=== PATIENT | male | born 1960 | race Caucasian/White ===

== ENCOUNTER 2018-11-22 09:29 | Emergency (ER) | payer OTHER ==
--- NOTE | 2018-11-22 09:43 | ERPHSYRPT ---
- History of Present Illness Time Seen by Provider: 11/22/18 09:35 Source: patient Exam Limitations: no limitations Physician History: patient has had sudden onset of left ear pain on 11/20/2018 in the evening with radiation to his jaw and neck over the past day. The patient denies any recent air travel or plan, recent swimming, recent scuba diving, or any overwhelming sinus congestion or drainage. Patient states he does sometimes use ear plugs to that left ear. Timing/Duration: abrupt onset Severity: severe ENT Location: ear (L) Prearrival Treatment: no prearrival treatment Modifying Factors: Improves With: nothing Associated Symptoms: ear pain (L), No ear pain (R), No cough, No fever, No chills, No change in hearing, No dizziness, No drooling, No ear drainage, No facial pain/swelling, No headache, No hearing loss, No jaw pain, No malaise, No motion sickness, No nasal congestion/drainage, No epistaxis, No nasal foreign body, No neck pain, No poor fluid intake, No poor solids intake, No ringing of ears, No swollen glands, No sinus infection, No sore throat, No tooth pain, No difficulty swallowing, No voice change - Review of Systems Constitutional: No Fever, No Chills Eyes: No Discharge, No Eye Pain, No Eye Redness, No Vision Changes Ears, Nose, & Throat: Ear Pain, No Ear Discharge, No Nose Congestion, No Nose Discharge, No Mouth Pain, No Mouth Swelling, No Loose Teeth, No Throat Pain, No Throat Swelling, No Hoarse, No Painful Swallowing Respiratory: No Cough, No Dyspnea Cardiac: No Chest Pain, No Edema, No Syncope Abdominal/Gastrointestinal: No Abdominal Pain, No Nausea, No Vomiting, No Diarrhea Genitourinary Symptoms: No Dysuria Musculoskeletal: No Back Pain, No Neck Pain Skin: No Rash Neurological: No Dizziness, No Focal Weakness, No Sensory Changes Psychological: No Symptoms Endocrine: No Symptoms Hematologic/Lymphatic: No Easy Bleeding, No Easy Bruising All Other Systems: Reviewed and Negative - Past Medical History Pertinent Past Medical History: Yes Cardiac History: Coronary Artery Disease, High Cholesterol, Hypertension Endocrine Medical History: Diabetes Type II GI Medical History: GERD - Past Surgical History Cardiac: Cardiac Stent Gastrointestinal: Appendectomy, Cholecystectomy, Hernia Repair - Social History Smoking Status: Never smoker Exposure to second hand smoke: No Alcohol Use: None Drug Use: none Patient Lives Alone: No - Nursing Vital Signs Nursing Vital Signs: Initial Vital Signs Temperature 97.7 F 11/22/18 09:31 Pulse Rate 84 11/22/18 09:31 Respiratory Rate 18 11/22/18 09:31 Blood Pressure 138/81 11/22/18 09:31 O2 Sat by Pulse Oximetry 96 11/22/18 09:31 Pain Scale Pain Intensity 10 - Physical Exam General Appearance: no apparent distress, alert Eye Exam: bilateral eye: normal inspection, PERRL, EOMI Ear Exam: right ear: canal normal, left ear: swelling, tenderness, bilateral ear : auricle normal, TM normal Nasal Exam: normal inspection, No discharge, No dried blood Throat Exam: normal, pharynx normal, moist mucus membranes, No dental tenderness , No excessive drooling, No foreign body, No mandibular swelling, No maxillary swelling, No pharynx swelling, No pharynx tenderness, No tongue swollen, No tonsillar exudate, No tonsillar swelling, No trismus, No uvula swelling, No voice changes Neck Exam: normal inspection, non-tender, supple, trachea midline, No full range of motion, No JVD, No lymphadenopathy (R), No Brudzinski's sign Cardiovascular/Respiratory Exam: normal breath sounds, regular rate/rhythm, heart sounds normal, no JVD, no M/R/G Abdominal Exam: non-tender, soft Neurologic Exam: alert, oriented x 3, music therapist II-XII nml as tested, normal mood/ affect, sensation nml, No motor deficits Skin Exam: normal color, warm, dry, No cyanosis SpO2 Interpretation: normal O2 Delivery: Room Air - Departure Departure Disposition: Home Clinical Impression: Left otitis externa Qualifiers: Otitis externa type: other infective Chronicity: acute Qualified Code(s): H60.392 - Other infective otitis externa, left ear Hypertension Qualifiers: Hypertension type: essential hypertension Qualified Code(s): I10 - Essential ( primary) hypertension Condition: Good Critical Care Time: No Referrals: ALICIA SCHAEFER II [Primary Care Provider] - Follow Up with PCP/3 days Instructions: High Blood Pressure (DC), Ear Infections (Otitis Media) (DC) Prescriptions: Etodolac 400 mg [Lodine 400 mg] 400 mg PO BID PRN PRN #20 tablet PRN Reason: Pain Kumar/Baci/Poly/Hc Ear Solution* [CORTISPORIN EAR DROPS Solution 1OML] 4 drops OT QID 10 Days #1 bottle
[2018-11-22 09:46] VITALS: BP 138/81; PULSE 84; O2SAT 96
== END 2018-11-22 09:51 | disposition home or self-care (01) ==
LOC: ED 09:29
DX: H60.392 Other infective otitis externa, left ear (principal); I10 Essential (primary) hypertension
CPT/HCPCS: 99283

== ENCOUNTER 2019-05-21 05:22 | Emergency (ER) | payer OTHER ==
--- NOTE | 2019-05-21 05:56 | ERPHSYRPT ---
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, pt states that he has had rt foot pain for the past week, pt states that he thought he spained his foot, pt states that today the pain radiated up his calf, to his knee and up to his hip, pt states he has neuropathy, pt states that he checks his feet due to his diabetes, pt state that the pain has increase and radiated today, pt states that he recognized his rt foot was purple on the sole, pt states he noticed swelling today Triage Nursing Assessment: pt ambulated into the er, pt is axo x3, pt walked with limp, pt has mild edema to rt ankle, positive pedal pulses, good cap refill , states 8/10 pain to rt foot, hypertensive Physician History: This is a 59-year-old diabetic overweight, white male with a history of hypertension and presents with a one-week history of right foot pain. The pain radiates up his calf into his buttock on the right side. Patient has a history of diabetic neuropathy generally. However, he has had right foot pain in the last week. This is unusual for him. He denies any trauma to this area. Patient has no history of any bleeding or clotting disorders. 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 The pain was much worse this morning. Method of Injury: unknown Occurred: last week Quality: constant, aching, throbbing Severity of Pain-Max: moderate Severity of Pain-Current: moderate Lower Extremities Pain: foot: right Modifying Factors: Improves With: nothing Associated Symptoms: other (Hurts to bear weight) Allergies/Adverse Reactions: No Known Drug Allergies Allergy (Unverified 05/21/19 05:42) Home Medications: Amlodipine Besylate 10 mg PO DAILY 05/21/19 [History] Aspirin [Aspirin EC] 81 mg PO DAILY 05/21/19 [History] Clopidogrel Bisulfate [Clopidogrel] 75 mg PO DAILY 05/21/19 [History] Empagliflozin [Jardiance] 25 mg PO DAILY 05/21/19 [History] Gabapentin 100 mg PO TID 05/21/19 [History] Glimepiride 4 mg [Amaryl 4 mg] 4 mg PO DAILY 05/21/19 [History] Insulin Glargine,Hum.rec.anlog [Basaglar Kwikpen U-100] 100 unit SQ HS 05/21/19 [History] Insulin Lispro [Humalog Kwikpen U-100] 58 units SQ DAILY 05/21/19 [History] Metoprolol Succinate 50 mg PO DAILY 05/21/19 [History] Olmesartan/Hydrochlorothiazide [Olmesartan-Hctz 40-25 mg Tab] 1 tab PO DAILY 11/01 [History] Omeprazole 40 mg PO DAILY 05/21/19 [History] Oxycodone HCl/Acetaminophen [Oxycodone-Acetaminophen 10-325] 1 tab PO QID [History] Pravastatin Sodium 20 mg PO DAILY 05/21/19 [History] Hx Tetanus, Diphtheria Vaccination/Date Given: Yes Hx Influenza Vaccination/Date Given: Yes Hx Pneumococcal Vaccination/Date Given: Yes - Review of Systems Constitutional: No Symptoms Eyes: No Symptoms Ears, Nose, & Throat: No Symptoms Respiratory: No Symptoms Cardiac: No Symptoms Abdominal/Gastrointestinal: No Symptoms Genitourinary Symptoms: No Symptoms Musculoskeletal: Other (Right foot pain) Skin: No Symptoms Neurological: No Symptoms Psychological: No Symptoms Endocrine: No Symptoms Hematologic/Lymphatic: No Symptoms Immunological/Allergic: No Symptoms All Other Systems: Reviewed and Negative - Past Medical History Pertinent Past Medical History: Yes Neurological History: No Pertinent History ENT History: No Pertinent History Cardiac History: Coronary Artery Disease, High Cholesterol, Hypertension Respiratory History: No Pertinent History Endocrine Medical History: Diabetes Type II Musculoskeletal History: No Pertinent History GI Medical History: GERD History: No Pertinent History Psycho-Social History: No Pertinent History Male Reproductive Disorders: No Pertinent History - Past Surgical History Past Surgical History: Yes Neuro Surgical History: No Pertinent History Cardiac: Cardiac Stent Respiratory: No Pertinent History Gastrointestinal: Appendectomy, Cholecystectomy, Hernia Repair Genitourinary: No Pertinent History Musculoskeletal: No Pertinent History Male Surgical History: No Pertinent History Other Surgical History: cardiac cath with stent placement, appendectomy, cholecystectomy - Social History Smoking Status: Never smoker Exposure to second hand smoke: No Alcohol Use: None Drug Use: none Patient Lives Alone: No - Nursing Vital Signs Nursing Vital Signs: Initial Vital Signs Temperature 97.6 F 05/21/19 05:26 Pulse Rate 73 05/21/19 05:26 Respiratory Rate 19 03/08/20 05:26 Blood Pressure 175/103 05/21/19 05:26 O2 Sat by Pulse Oximetry 98 05/21/19 05:26 Pain Scale Pain Intensity 7 - Physical Exam General Appearance: no apparent distress, alert, anxiety Eyes, Ears, Nose, Throat Exam: normal ENT inspection, moist mucous membranes Neck Exam: normal inspection, non-tender, supple, full range of motion Cardiovascular/Respiratory Exam: chest non-tender Gastrointestinal/Abdominal Exam: non-tender Back Exam: normal inspection, normal range of motion, No CVA tenderness, No vertebral tenderness Hips Exam: bilateral: non-tender, normal inspection, normal range of motion, no evidence of injury Legs Exam: bilateral leg: non-tender, normal inspection, normal range of motion , no evidence of injury Knees Exam: bilateral knee: non-tender, normal inspection, normal range of motion, no evidence of injury Ankle Exam: bilateral ankle: non-tender, normal inspection, normal range of motion, no evidence of injury Foot Exam: right foot: soft tissue tenderness, swelling (Medial, instep), left foot: non-tender, bilateral foot: normal inspection, normal range of motion, no evidence of injury Neuro/Tendon Exam: normal sensation, normal motor functions, normal tendon functions Mental Status Exam: alert, oriented x 3, cooperative Skin Exam: normal color, warm, dry SpO2 Interpretation: normal SpO2: 98 O2 Delivery: Room Air - Course Nursing assessment & vital signs reviewed: Yes Ordered Tests: Active Orders 24 hr Category Date Time Status FOOT (MINIMUM 3 VIEWS) Stat Exams 05/21/19 05:56 Taken D-DIMER QUANTITATIVE Stat Lab 05/21/19 06:25 Completed Medication Summary Discontinued Medications Generic Name Dose Route Start Last Admin Trade Name Freq PRN Reason Stop Dose Admin Oxycodone/Acetaminophen 1 tab 05/21/19 06:02 05/21/19 06:13 Oxycodone-Acetaminophen 10-325 PO 05/21/19 06:03 1 tab STAT STA Administration Oxycodone/Acetaminophen Confirm 05/21/19 06:12 Oxycodone-Acetaminophen 10-325 Administered 05/21/19 06:13 Dose 1 tab .ROUTE .[employer]-MED ONE Lab/Rad Data: Laboratory Results 05/21/19 Range/Units 06:25 D-Dimer 257 (215-500) ng/mL - Progress Progress Note: 05/21/19 06:30 X-ray of the right foot reveals chronic arthritic changes. I do not see an acute fracture or dislocation. Counseled pt/family regarding: diagnosis, need for follow-up, rad results - Departure Departure Disposition: Home Clinical Impression: Right foot pain Condition: Stable Critical Care Time: No Referrals: ALICIA SCHAEFER II [Primary Care Provider] - Additional Instructions: Ice pack to area 3 times a day for the next 48 hours. Follow-up with your primary care physician if your symptoms have not improved and are persistent after the next 48 hours. Continue your Percocet pain medication. Prescriptions: Carisoprodol 350 mg [Soma 350 mg] 350 mg PO Q12H PRN PRN #9 tablet PRN Reason: Muscle Spasms
[2019-05-21] MEDS ORDERED: OXYCODONE-ACETAMINOPHEN 10-325 PO STA (06:02)
[2019-05-21] MEDS ORDERED: OXYCODONE-ACETAMINOPHEN 10-325 ONE (06:12)
[2019-05-21 07:06] VITALS: O2SAT 98
[2019-05-21 07:22] VITALS: BP 149/87; PULSE 64
--- NOTE | 2019-05-21 08:53 | XRAY ---
Indication: Medial pain. No known injury. Comparison: None 3 nonweightbearing views of the right foot demonstrates moderate 1st MTP degenerative changes with mild bunion deformity and tiny medial heterotopic ossification. Tiny heel spurs. No other bony, articular, or soft tissue abnormalities.
== END 2019-05-21 07:22 | disposition home or self-care (01) ==
LOC: ED 05:22
DX: M79.671 Pain in right foot (principal); I25.10 Atherosclerotic heart disease of native coronary artery without angina pectoris; E78.00 Pure hypercholesterolemia, unspecified; I10 Essential (primary) hypertension; E11.9 Type 2 diabetes mellitus without complications; K21.9 Gastro-esophageal reflux disease without esophagitis; Z98.61 Coronary angioplasty status; Z79.899 Other long term (current) drug therapy; Z79.4 Long term (current) use of insulin; Z79.84 Long term (current) use of oral hypoglycemic drugs; Z79.891 Long term (current) use of opiate analgesic; Z79.82 Long term (current) use of aspirin; E11.40 Type 2 diabetes mellitus with diabetic neuropathy, unspecified
CPT/HCPCS: 36415; 73630; 85379; 99283; A9270-GY

== ENCOUNTER 2020-09-02 17:54 | Emergency (ER) | payer OTHER ==
--- NOTE | 2020-09-02 18:28 | ERPHSYRPT ---
<VILMA GÓMEZ - Last Filed: 09/02/20 18:33> - History of Present Illness Time Seen by Provider: 09/02/20 17:56 Historian: patient Exam Limitations: no limitations Patient Subjective Stated Complaint: chest pain x 3 days Triage Nursing Assessment: pt to ED c/o CP x 3 days. states pain has worsened since start, was resting in bed. rates 7/10 now. had nitro at home with some relief on Wednesday but none since then. heart sounds clear, lungs clear and equal bilaterally. Physician History: 60-year-old male with history of coronary artery disease status post stenting, hypertension, hyperlipidemia, diabetes mellitus presented in the ER with chief complaint of 3 days history of intermittent chest pain central and across the chest, moderate to severe intensity, dull pressure/tightness as if something sitting on chest, aggravated with activity/exertion and partial relief with taking nitro and rest. Denies associated shortness of breath or palpitations. Denies any lower extremity swellings. Last cardiac cath and stenting was almost a year ago. On presentation patient has a severe pain 9/10 intensity, given nitro and it is much improved. Timing/Duration: day(s) (3), intermittent, gradual onset, worse Activities at Onset: activity, rest Quality: dullness, fullness, pressure Location: central Chest Pain Radiation: jaw, neck Severity of Pain-Max: severe Severity of Pain-Current: moderate Modifying Factors: Worsens With: exertion Associated Symptoms: denies symptoms Prior Chest Pain/Cardiac Workup: cardiac cath, heart attack Nitro Today/Relief: 0.4 mg x 1 Aspirin Treatment Today: unknown Allergies/Adverse Reactions: No Known Drug Allergies Allergy (Verified 09/02/20 18:02) Home Medications: Amlodipine Besylate 10 mg PO DAILY 05/21/19 [History] Aspirin [Aspirin EC] 81 mg PO DAILY 05/21/19 [History] Clopidogrel Bisulfate [Clopidogrel] 75 mg PO DAILY 05/21/19 [History] Empagliflozin [Jardiance] 25 mg PO DAILY 05/21/19 [History] Gabapentin 100 mg PO TID 05/21/19 [History] Glimepiride 4 mg [Amaryl 4 mg] 4 mg PO DAILY 05/21/19 [History] Insulin Glargine,Hum.rec.anlog [Basaglar Kwikpen U-100] 100 unit SQ HS 05/21/19 [History] Insulin Lispro [Humalog Kwikpen U-100] 58 units SQ DAILY 05/21/19 [History] Metoprolol Succinate 50 mg PO DAILY 05/21/19 [History] Olmesartan/Hydrochlorothiazide [Olmesartan-Hctz 40-25 mg Tab] 1 tab PO DAILY 05/21/19 [History] Omeprazole 40 mg PO DAILY 05/21/19 [History] Oxycodone HCl/Acetaminophen [Oxycodone-Acetaminophen 10-325] 1 tab PO QID 05/21/19 [History] Pravastatin Sodium 20 mg PO DAILY 05/21/19 [History] Hx Tetanus, Diphtheria Vaccination/Date Given: Yes Hx Influenza Vaccination/Date Given: Yes Hx Pneumococcal Vaccination/Date Given: Yes Immunizations Up to Date: Yes Travel Risk - International Travel Have you traveled outside of the country in past 3 weeks: No - Coronavirus Screening Are you exhibiting any of the following symptoms?: No Close contact with a COVID-19 positive Pt in past 14-21 Days: No - Vaccine Status Have you recieved a Covid-19 vaccination: No - Review of Systems Constitutional: No Symptoms Eyes: No Symptoms Ears, Nose, & Throat: No Symptoms Respiratory: No Symptoms Cardiac: Chest Pain Abdominal/Gastrointestinal: No Symptoms Genitourinary Symptoms: No Symptoms Musculoskeletal: No Symptoms Skin: No Symptoms Neurological: No Symptoms Psychological: No Symptoms Endocrine: No Symptoms Hematologic/Lymphatic: No Symptoms Immunological/Allergic: No Symptoms - Past Medical History Pertinent Past Medical History: Yes Neurological History: No Pertinent History ENT History: No Pertinent History Cardiac History: Coronary Artery Disease, High Cholesterol, Hypertension Respiratory History: No Pertinent History Endocrine Medical History: Diabetes Type II Musculoskeletal History: No Pertinent History GI Medical History: GERD History: No Pertinent History Psycho-Social History: No Pertinent History Male Reproductive Disorders: No Pertinent History - Past Surgical History Past Surgical History: Yes Neuro Surgical History: No Pertinent History Cardiac: Cardiac Catheterization, Cardiac Stent Respiratory: No Pertinent History Gastrointestinal: Appendectomy, Cholecystectomy, Hernia Repair Genitourinary: No Pertinent History Musculoskeletal: No Pertinent History Male Surgical History: No Pertinent History Other Surgical History: cardiac cath with stent placement, appendectomy, cholecystectomy - Social History Smoking Status: Never smoker Exposure to second hand smoke: No Alcohol Use: None Drug Use: none Patient Lives Alone: No - Physical Exam General Appearance: no apparent distress, alert Eye Exam: PERRL/EOMI, eyes nml inspection Ears, Nose, Throat Exam: normal ENT inspection, pharynx normal Neck Exam: normal inspection, supple, full range of motion Respiratory Exam: normal breath sounds, lungs clear Cardiovascular Exam: regular rate/rhythm, normal heart sounds Gastrointestinal/Abdomen Exam: soft, normal bowel sounds, No tenderness Back Exam: normal inspection, normal range of motion Extremity Exam: normal inspection, normal range of motion, pelvis stable, No macey's sign Neurologic Exam: alert, oriented x 3, cooperative Skin Exam: normal color SpO2 Interpretation: normal SpO2: 95 O2 Delivery: Room Air - Course EKG Interpreted by Me: RATE (65), Sinus Rhythm, NORMAL AXIS, NORMAL INTERVALS, NORMAL QRS - Progress Progress: unchanged Air Movement: good Progress Note: 09/02/20 18:58 60-year-old is evaluated for chest pain, given full dose aspirin, Nitropaste and morphine. Chest pain work-up is ordered, currently pending, care is transferred to Dr. Herrera for further evaluation and final disposition. Blood Culture(s) Obtained: No Antibiotics given: No - Departure Clinical Impression: Chest pain, ACS (acute coronary syndrome) Condition: Stable Referrals: ALICIA SCHAEFER II [Primary Care Provider] - <GOLDY HERRERA - Last Filed: 09/02/20 19:52> - Nursing Vital Signs Nursing Vital Signs: Initial Vital Signs Pulse Rate 70 09/02/20 17:55 Respiratory Rate 20 09/02/20 17:55 Blood Pressure 181/92 09/02/20 17:55 O2 Sat by Pulse Oximetry 95 09/02/20 17:55 Pain Scale Pain Intensity 7 Ordered Tests: Active Orders 24 hr Category Date Time Status Customs And Immigration Officer STAT Care 09/02/20 18:36 Active EKG-ER Only STAT Care 09/02/20 18:29 Active IV Insertion STAT Care 09/02/20 18:29 Active Oxygen-ED Only Nasal Cannula 2 lpm Care 09/02/20 18:29 Active CHEST 1 VIEW (PORTABLE) Stat Exams 09/02/20 18:29 Taken CBC W DIFF Stat Lab 09/02/20 18:36 Completed CMP Stat Lab 09/02/20 18:36 Completed NT PRO BNP Stat Lab 09/02/20 18:36 Completed TROPONIN Q3H Lab 09/02/20 18:36 Completed TROPONIN Q3H Lab 09/02/20 21:30 Ordered TROPONIN Q3H Lab 09/03/20 00:30 Ordered TROPONIN Q3H Lab 09/03/20 03:30 Ordered TROPONIN Q3H Lab 09/03/20 06:30 Ordered Medication Summary Discontinued Medications Generic Name Dose Route Start Last Admin Trade Name Greg PRN Reason Stop Dose Admin Aspirin 324 mg 09/02/20 18:29 09/02/20 18:35 Baby Aspirin 81 Mg Chew PO 09/02/20 18:30 324 mg STAT ONE Administration Hydromorphone HCl 0.5 mg 09/02/20 19:35 Hydromorphone 1 Mg/Ml Injection IV 09/02/20 19:36 STAT ONE Morphine Sulfate 4 mg 09/02/20 18:29 09/02/20 18:38 Morphine Sulfate 4 Mg Inj IV 09/02/20 18:30 4 mg STAT ONE Administration Morphine Sulfate Confirm 09/02/20 18:35 Morphine Sulfate 4 Mg Inj Administered 09/02/20 18:36 Dose 4 mg .ROUTE .STK-MED ONE Morphine Sulfate 4 mg 09/02/20 19:09 09/02/20 19:10 Morphine Sulfate 4 Mg Inj IV 09/02/20 19:10 4 mg STAT ONE Administration Morphine Sulfate Confirm 09/02/20 19:10 Morphine Sulfate 4 Mg Inj Administered 09/02/20 19:11 Dose 4 mg .ROUTE .STK-MED ONE Nitroglycerin 1 gm 09/02/20 18:29 09/02/20 18:34 Nitro-Bid 2% Ud Packets TOP 09/02/20 18:30 Not Given STAT ONE Nitroglycerin 0.4 mg 09/02/20 18:41 09/02/20 18:43 Nitrostat 0.4 Mg Tablet SL 09/02/20 18:42 0.4 mg STAT ONE Administration Ondansetron HCl 4 mg 09/02/20 18:29 09/02/20 18:38 Zofran 4 Mg/2 Ml Vial IV 09/02/20 18:30 4 mg STAT ONE Administration Ondansetron HCl Confirm 09/02/20 18:35 Zofran 4 Mg/2 Ml Vial Administered 09/02/20 18:36 Dose 4 mg .ROUTE .STK-MED ONE Lab/Rad Data: Laboratory Result Diagrams 09/02/20 18:36 09/02/20 18:36 Laboratory Results 09/02/20 09/02/20 09/02/20 Range/Units 18:36 18:36 18:36 WBC 11.1 H (4.0-10.5) K/mm3 RBC 5.11 (4.1-5.6) M/mm3 Hgb 15.4 (12.5-18.0) gm/dl Hct 46.0 (42-50) % MCV 90.0 (78-100) fl MCH 30.1 (26-32) pg MCHC 33.5 (32-36) g/dl RDW 13.4 (11.5-14.0) % Plt Count 203 (150-450) K/mm3 MPV 9.6 (7.5-11.0) fl Gran % 59.5 (36.0-66.0) % Eos # (Auto) 0.37 (0-0.5) Absolute Lymphs (auto) 3.23 (1.0-4.6) Absolute Monos (auto) 0.87 (0.0-1.3) Lymphocytes % 29.1 (24.0-44.0) % Monocytes % 7.8 (0.0-12.0) % Eosinophils % 3.3 (0.00-5.0) % Basophils % 0.3 (0.0-0.4) % Absolute Granulocytes 6.60 (1.4-6.9) Basophils # 0.03 (0-0.4) Sodium 134 L (137-145) mmol/L Potassium 4.1 (3.5-5.1) mmol/L Chloride 100 (98-107) mmol/L Carbon Dioxide 25 (22-30) mmol/L Anion Gap 12.2 (5-15) MEQ/L BUN 20 (9-20) mg/dL Creatinine 0.88 (0.66-1.25) mg/dL Estimated GFR > 60.0 ML/MIN Glucose 151 H (74-106) mg/dL Calcium 8.6 (8.4-10.2) mg/dL Total Bilirubin 0.20 (0.2-1.3) mg/dL AST 33 (17-59) U/L ALT 39 (0-50) U/L Alkaline Phosphatase 53 (38-126) U/L Troponin I < 0.012 (0.000-0.034) ng/mL NT-Pro-B Natriuret Pep 55.2 (0-900) pg/mL Serum Total Protein 6.6 (6.3-8.2) g/dL Albumin 3.9 (3.5-5.0) g/dL - Progress Progress Note: 09/02/20 19:36 Medical decision making: This patient continues to have chest pain despite morphine Nitropaste and dilaudid.. I spoke with the hospitalist Dr. Boland and I reviewed the patient history, lab results, EKG findings, chest x-ray results and patient condition with the hospitalist. He accepts the patient in transfer. Patient had made phone calls separately while we were making phone calls as well to [facility]. 09/02/20 19:50 Chest x-ray shows cardiomegaly. No evidence of acute cardiopulmonary issues appreciated. Counseled pt/family regarding: lab results, diagnosis, rad results - Departure Departure Disposition: Transfer Critical Care Time: Yes Critical Care Time(excluding separately billable procedures): Critical 30-74 mins
[2020-09-02] MEDS ORDERED: Zofran 4 MG/2 ML VIAL IV ONE (18:29)
[2020-09-02] MEDS ORDERED: MORPHINE SULFATE 4 MG INJ IV ONE ×2 (18:29→19:09)
[2020-09-02] MEDS ORDERED: NITRO-BID 2% UD PACKETS TOP ONE (18:29)
[2020-09-02] MEDS ORDERED: BABY ASPIRIN 81 MG CHEW PO ONE (18:29)
[2020-09-02] MEDS ORDERED: MORPHINE SULFATE 4 MG INJ ONE ×2 (18:35→19:10)
[2020-09-02] MEDS ORDERED: Zofran 4 MG/2 ML VIAL ONE (18:35)
[2020-09-02] MEDS ORDERED: Nitrostat 0.4 MG Tablet SL ONE (18:41)
[2020-09-02 18:43] LABS: BASOPHIL % 0.3 % (0.0-0.4); Basophil (Absolute #) 0.03 (0-0.4); Eosinophil % 3.3 % (0.00-5.0); Eosinophil (Absolute #) 0.37 (0-0.5); Hemoglobin 15.4 gm/dl (12.5-18.0); Lymphocyte (Absolute #) 3.23 (1.0-4.6); Lymphocytes % 29.1 % (24.0-44.0); Mean Corpuscular Hemoglobin 30.1 pg (26-32); Mean Corpuscular Hgb Concent. 33.5 g/dl (32-36); Mean Platelet Volume 9.6 fl (7.5-11.0); Monocyte (Absolute #) 0.87 (0.0-1.3); Monocytes % 7.8 % (0.0-12.0); Neutrophil % 59.5 % (36.0-66.0); Platelet Count 203 K/mm3 (150-450); Red Blood Count 5.11 M/mm3 (4.1-5.6); Red Cell Distribution Width 13.4 % (11.5-14.0); White Blood Count 11.1 K/mm3 (4.0-10.5)
[2020-09-02 19:03] LABS: BLOOD UREA NITROGEN 20 mg/dL (9-20); Creatinine 1 0.88 mg/dL (0.66-1.25); Glucose 151 mg/dL (74-106)
[2020-09-02 19:04] LABS: ALBUMIN 3.9 g/dL (3.5-5.0); ALKALINE PHOSPHATASE 53 U/L (38-126); ANION GAP 12.2 MEQ/L (5-15); CHLORIDE 100 mmol/L (98-107); Calcium 8.6 mg/dL (8.4-10.2); Carbon Dioxide 25 mmol/L (22-30); EST GLOMERULAR FILTRATION RATE > 60.0 ML/MIN; NT PRO BNP 55.2 pg/mL (0-900); Potassium 4.1 mmol/L (3.5-5.1); SGOT/AST 33 U/L (17-59); SGPT/ALT 39 U/L (0-50); SODIUM 134 mmol/L (137-145); Total Protein 6.6 g/dL (6.3-8.2)
[2020-09-02] MEDS ORDERED: Hydromorphone 1 mg/ml Injection IV ONE (19:35)
[2020-09-02 19:52] VITALS: BP 141/83; PULSE 76; O2SAT 96
[2020-09-02] MEDS ORDERED: Hydromorphone 1 mg/ml Injection ONE (19:57)
--- NOTE | 2020-09-03 09:02 | XRAY ---
Indication: Chest pain. Comparison: May 17, 2008. Portable chest is clear. Heart is not enlarged. Bony thorax intact with minimal degenerative changes. No new/acute findings.
== END 2020-09-02 20:02 | disposition short-term general hospital (02) ==
LOC: ED 17:54
DX: R07.9 Chest pain, unspecified (principal); I24.9 Acute ischemic heart disease, unspecified; Z79.899 Other long term (current) drug therapy; I10 Essential (primary) hypertension; E78.00 Pure hypercholesterolemia, unspecified; E11.9 Type 2 diabetes mellitus without complications
CPT/HCPCS: 36000; 36415; 71045; 80053; 83880; 84484; 85025; 93005; 93041; 96374; 96375; 96376; 99285; 99291; J1170; J2270; J2405; A9270-GY

== ENCOUNTER 2022-06-01 21:50 | Emergency (ER) | payer OTHER ==
--- NOTE | 2022-06-01 23:27 | ERPHSYRPT ---
- History of Present Illness Time Seen by Provider: 06/01/22 23:26 Source: patient Exam Limitations: no limitations Physician History: Patient c/o left lower leg swelling and localized pain. No h/o VTE. + h/o smoking. No recent hospitalization or major surgery. No recent trauma. 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 Worsens With: movement Associated Symptoms: none Allergies/Adverse Reactions: morphine Adverse Reaction (Mild, Verified 06/01/22 23:39) aggravates gerd Home Medications: Amlodipine Besylate 10 mg PO DAILY 05/21/19 [History] Aspirin [Aspirin EC] 81 mg PO DAILY 05/21/19 [History] Clopidogrel Bisulfate [Clopidogrel] 75 mg PO DAILY 05/21/19 [History] Empagliflozin [Jardiance] 25 mg PO DAILY 05/21/19 [History] Gabapentin 100 mg PO TID 05/21/19 [History] Glimepiride 4 mg [Amaryl 4 mg] 4 mg PO DAILY 05/21/19 [History] Insulin Glargine,Hum.rec.anlog [Basaglar Kwikpen U-100] 100 unit SQ HS 05/21/19 [History] Insulin Lispro [Humalog Kwikpen U-100] 58 units SQ DAILY 05/21/19 [History] Metoprolol Succinate 50 mg PO DAILY 05/21/19 [History] Olmesartan/Hydrochlorothiazide [Olmesartan-Hctz 40-25 mg Tab] 1 tab PO DAILY 05/21/19 [History] Omeprazole 40 mg PO DAILY 05/21/19 [History] Oxycodone HCl/Acetaminophen [Oxycodone-Acetaminophen 10-325] 1 tab PO QID 05/21/19 [History] Pravastatin Sodium 20 mg PO DAILY 05/21/19 [History] Hx Tetanus, Diphtheria Vaccination/Date Given: Yes Hx Influenza Vaccination/Date Given: Yes Hx Pneumococcal Vaccination/Date Given: Yes Travel Risk - Vaccine Status Have you recieved a Covid-19 vaccination: No - Review of Systems Constitutional: No Symptoms Eyes: No Symptoms Ears, Nose, & Throat: No Symptoms Respiratory: No Symptoms Cardiac: No Symptoms Abdominal/Gastrointestinal: No Symptoms Genitourinary Symptoms: No Symptoms Musculoskeletal: Other (LLE pain, swelling) Skin: No Symptoms Neurological: No Symptoms Psychological: No Symptoms - Past Medical History Pertinent Past Medical History: Yes Neurological History: No Pertinent History ENT History: No Pertinent History Cardiac History: Coronary Artery Disease, High Cholesterol, Hypertension Respiratory History: No Pertinent History Endocrine Medical History: Diabetes Type II Musculoskeletal History: No Pertinent History GI Medical History: GERD History: No Pertinent History Psycho-Social History: No Pertinent History Male Reproductive Disorders: No Pertinent History - Past Surgical History Past Surgical History: Yes Neuro Surgical History: No Pertinent History Cardiac: Cardiac Catheterization, Cardiac Stent Respiratory: No Pertinent History Gastrointestinal: Appendectomy, Cholecystectomy, Hernia Repair Genitourinary: No Pertinent History Musculoskeletal: No Pertinent History Male Surgical History: No Pertinent History Other Surgical History: cardiac cath with stent placement, appendectomy, cholecystectomy - Social History Smoking Status: Never smoker Exposure to second hand smoke: No Alcohol Use: None Drug Use: none Patient Lives Alone: No - Nursing Vital Signs Nursing Vital Signs: Initial Vital Signs Temperature 97.6 F 06/01/22 23:24 Pulse Rate 66 06/01/22 23:24 Respiratory Rate 16 06/01/22 23:24 Blood Pressure 157/77 06/01/22 23:24 O2 Sat by Pulse Oximetry 94 L 06/01/22 23:24 Pain Scale Pain Intensity 8 - Physical Exam General Appearance: no apparent distress Cardiovascular/Respiratory Exam: normal breath sounds, regular rate/rhythm, heart sounds normal Gastrointestinal/Abdominal Exam: non-tender, soft Legs Exam: left leg: ecchymosis, pain, soft tissue tenderness, swelling Neuro/Tendon Exam: normal sensation, normal motor functions, normal tendon functions Mental Status Exam: alert, oriented x 3, cooperative Skin Exam: normal color, warm, dry SpO2 Interpretation: normal O2 Delivery: Room Air - Radiology Exams Left Ankle X-ray Interpretation: Interpreted by me, Negative - Radiology Ultrasound Exam Left Venous Lower Extremity Ultrasound: tele radiology report, negative, Other (No DVT) Ordered Tests: Active Orders 24 hr Category Date Time Status ANKLE (3 VIEWS) Stat Exams 06/01/22 23:43 Completed VENOUS UNILAT/LIMITED EXTREMIT [US] Stat Exams 03/21/23 00:36 Completed CBC Stat Lab 06/01/22 23:44 Completed CMP Stat Lab 06/01/22 23:44 Completed ESR [Erythrocyte Sedimentation Rate] Stat Lab 06/01/22 23:44 Completed Medication Summary Discontinued Medications Generic Name Dose Route Start Last Admin Trade Name Greg PRN Reason Stop Dose Admin Morphine Sulfate 2 mg 06/01/22 23:45 Morphine Sulfate 2 Mg/Ml Inj IV 06/01/22 23:46 STAT ONE Oxycodone/Acetaminophen 1 tab 06/02/22 00:17 06/02/22 00:31 Oxycodone / Apap 10/325 Mg 1 Tablet PO 06/02/22 00:18 1 tab STAT STA Administration Oxycodone/Acetaminophen Confirm 06/02/22 00:29 Oxycodone / Apap 10/325 Mg 1 Tablet Administered 06/02/22 00:30 Dose 1 tab .ROUTE .hoccer ONE Lab/Rad Data: Laboratory Result Diagrams 06/01/22 23:44 06/02/22 00:00 Laboratory Results 06/02/22 06/01/22 Range/Units 00:00 23:44 WBC 8.7 (4.0-10.5) x10^3/uL RBC 5.56 (4.1-5.6) x10^6/uL Hgb 16.7 (12.5-18.0) g/dL Hct 51.0 H (42-50) % MCV 91.7 (78-100) fL MCH 30.0 (26-32) pg MCHC 32.7 (32-36) g/dL RDW 13.2 (11.5-14.0) % Plt Count 196 (150-450) x10^3/uL MPV 9.8 (7.5-11.0) fL ESR 6 (0-15) mm/hr Sodium 135 L (137-145) mmol/L Potassium 4.5 (3.5-5.1) mmol/L Chloride 97 L (98-107) mmol/L Carbon Dioxide 29 (22-30) mmol/L Anion Gap 12.6 (5-15) MEQ/L BUN 19 (9-20) mg/dL Creatinine 0.88 (0.66-1.25) mg/dL Estimated GFR > 60.0 ML/MIN Glucose 215 H (74-106) mg/dL Calcium 9.1 (8.4-10.2) mg/dL Total Bilirubin 0.40 (0.2-1.3) mg/dL AST 29 (17-59) U/L ALT 44 (0-50) U/L Alkaline Phosphatase 65 (38-126) U/L Serum Total Protein 7.0 (6.3-8.2) g/dL Albumin 4.1 (3.5-5.0) g/dL - Progress Progress: improved Progress Note: Ankle XR showed no acute finding. LLE venous duplex showed no DVT. Lab evaluation unremarkable. Advised patient to Ice 4-5x QD for 10-15min, elevate the extremity, compression prn, NSAIDs/Voltaren gel prn for pain. If no improvement in 48-72 hours please f/u w/ ortho clinic. Counseled pt/family regarding: lab results, diagnosis, need for follow-up, rad results Medical Desision Making - Diagnostic Testing Diagnostic test were ordered, analyzed, and reviewed by me: Yes Radiological Interpretation: Interpreted by me, Reviewed by me - Risk of complications The pt has a mod risk of morbidity or mortality based on: Need for prescription drug management - Departure Departure Disposition: Home Clinical Impression: Left lateral ankle pain, Swelling of left ankle joint Condition: Good Critical Care Time: No Referrals: ALICIA SCHAEFER II [Primary Care Provider] - Follow up/PCP as directed Instructions: Swollen Joints (DC) Additional Instructions: Take Percocet as prescribed. Tylenol 1000mg BID in addition to QD Percocet. Voltaren gel prn. Ice 4-5 times per day. F/U w/ PCP w/in 3-5 days.
[2022-06-01 23:37] VITALS: BP 157/77; PULSE 66; O2SAT 94
[2022-06-01] MEDS ORDERED: MORPHINE SULFATE 2 MG INJ IV ONE (23:45)
[2022-06-02 00:04] LABS: Hemoglobin 16.7 g/dL (12.5-18.0); Mean Cell Volume 91.7 fL (78-100); Mean Corpuscular Hgb Concent. 32.7 g/dL (32-36); Mean Platelet Volume 9.8 fL (7.5-11.0); Platelet Count 196 x10^3/uL (150-450); Red Blood Count 5.56 x10^6/uL (4.1-5.6); Red Cell Distribution Width 13.2 % (11.5-14.0); White Blood Count 8.7 x10^3/uL (4.0-10.5)
[2022-06-02 00:16] LABS: Erythrocyte Sedimentation Rate 6 mm/hr (0-15)
[2022-06-02 00:17] LABS: ALBUMIN 4.1 g/dL (3.5-5.0); ALKALINE PHOSPHATASE 65 U/L (38-126); ANION GAP 12.6 MEQ/L (5-15); BLOOD UREA NITROGEN 19 mg/dL (9-20); CHLORIDE 97 mmol/L (98-107); Calcium 9.1 mg/dL (8.4-10.2); Carbon Dioxide 29 mmol/L (22-30); Creatinine 1 0.88 mg/dL (0.66-1.25); EST GLOMERULAR FILTRATION RATE > 60.0 ML/MIN; Glucose 215 mg/dL (74-106); Potassium 4.5 mmol/L (3.5-5.1); SGOT/AST 29 U/L (17-59); SGPT/ALT 44 U/L (0-50); SODIUM 135 mmol/L (137-145)
[2022-06-02] MEDS ORDERED: OXYCODONE-ACETAMINOPHEN 10-325 PO STA (00:17)
[2022-06-02] MEDS ORDERED: OXYCODONE-ACETAMINOPHEN 10-325 ONE (00:29)
--- NOTE | 2022-06-02 09:18 | XRAY ---
Indication: Pain and bruising. Comparison: None 3 view left ankle demonstrates tiny posterior heel and medial malleolus spur. No other bony, articular, or soft tissue abnormalities.
--- NOTE | 2022-06-02 16:23 | XRAY ---
Indication: Pain and swelling. Two-dimensional sonogram and color Doppler imaging of the major venous vessels of the left leg performed. Comparison: None No thrombus seen in the examined deep venous vessels of the left leg including greater saphenous vein. Veins demonstrate normal compressibility. Venous waveforms are normal with and without augmentation. Targeted ultrasound over region of interest is negative for focal solid/cystic mass or abnormal fluid collection. Impression: Left leg negative for DVT. Comment: Preliminary report was given.
== END 2022-06-02 01:02 | disposition home or self-care (01) ==
LOC: ED 21:50
DX: M25.572 Pain in left ankle and joints of left foot (principal); M25.472 Effusion, left ankle; E78.5 Hyperlipidemia, unspecified; I10 Essential (primary) hypertension; E11.9 Type 2 diabetes mellitus without complications; Z79.02 Long term (current) use of antithrombotics/antiplatelets; Z79.84 Long term (current) use of oral hypoglycemic drugs; Z79.4 Long term (current) use of insulin; Z79.899 Other long term (current) drug therapy; Z28.310 Unvaccinated for COVID-19
CPT/HCPCS: 36415; 73610; 80053; 85027; 85652; 93971; 99283; A9270-GY

== ENCOUNTER 2022-11-18 19:38 | Emergency (ER) | payer OTHER ==
[2022-11-18 20:15] VITALS: TEMP 97.2; O2SAT 94
--- NOTE | 2022-11-18 20:26 | ERPHSYRPT ---
- History of Present Illness Time Seen by Provider: 11/18/22 20:40 Source: patient Exam Limitations: no limitations Patient Subjective Stated Complaint: pt states that this afternoon around 1300 he was getting in bed and heard/ felt a pop to the lateral side of left foot and has had 9/10 pain since that time. he denies knowingly twisting or any other mechanism for injury. he reports having something similar happening to his right foot years ago and there was a fracture. that time there was significant swelling per his report and no swelling noted to left foot at this time. Triage Nursing Assessment: pt brought to room 9 via wheelchair and transfered self to ED cart independently. pt is alert and oriented times three, able to move all extremities (limited to left foot due to pain), able to speak in complete sentences, and with resp even and unlabored. left pedal pulse palpable and normal, pt denies any new numbness or tingling (other than his normal neuropathy), cap refill and color are within normal limits, and pt is able to wiggle his toes. no swelling, deformity, bruising, or swelling noted. Physician History: Patient is a 62-year-old male presents to our ED with pain to the outside of his left foot. Patient states he was getting into bed today at approximately 1 PM. Patient felt a popping sensation followed by pain rated 9 out of 10. Patient states he had similar episode in the past involving his right foot. Patient was diagnosed with a fracture at that time. No blunt trauma. Patient denies twisting his foot. Pain described as an ache that is localized. No radiation. Pain worse with movement palpation. Pain improved with rest. No other injuries. Patient voices no other complaints or concerns at this time. Portions of this note were created with voice recognition technology. There may be grammatical, spelling, punctuation or sound alike errors Method of Injury: other (Weightbearing) Occurred: just prior to arrival (1 PM) Quality: constant Severity of Pain-Max: moderate Severity of Pain-Current: mild Lower Extremities Pain: foot: left (Fifth metatarsal base) Modifying Factors: Improves With: movement Associated Symptoms: none Allergies/Adverse Reactions: morphine Adverse Reaction (Mild, Verified 11/18/22 19:50) aggravates gerd Home Medications: Amlodipine Besylate 10 mg PO HS 05/21/19 [History] Aspirin [Aspirin EC] 81 mg PO DAILY 05/21/19 [History] Clopidogrel Bisulfate [Clopidogrel] 75 mg PO HS 05/21/19 [History] Empagliflozin [Jardiance] 25 mg PO DAILY 05/21/19 [History] Glimepiride 4 mg [Amaryl 4 mg] 4 mg PO DAILY 05/21/19 [History] Insulin Glargine,Hum.rec.anlog [Basaglar Kwikpen U-100] 100 unit SQ HS 05/21/19 [History] Insulin Lispro [Humalog Kwikpen U-100] 58 units SQ BID 05/21/19 [History] Metoprolol Succinate 50 mg PO DAILY 05/21/19 [History] Olmesartan/Hydrochlorothiazide [Olmesartan-Hctz 40-25 mg Tab] 1 tab PO DAILY 05/21/19 [History] Omeprazole 40 mg PO DAILY 05/21/19 [History] Oxycodone HCl/Acetaminophen [Oxycodone-Acetaminophen 10-325] 1 tab PO QID 05/21/19 [History] Pravastatin Sodium 20 mg PO HS 05/21/19 [History] Hx Tetanus, Diphtheria Vaccination/Date Given: Yes Hx Influenza Vaccination/Date Given: No Hx Pneumococcal Vaccination/Date Given: No Immunizations Up to Date: Yes Travel Risk - International Travel Have you traveled outside of the country in past 3 weeks: No - Coronavirus Screening Are you exhibiting any of the following symptoms?: No Close contact with a COVID-19 positive Pt in past 14-21 Days: No - Vaccine Status Have you recieved a Covid-19 vaccination: No - Review of Systems Constitutional: No Symptoms, No Fever, No Chills Eyes: No Symptoms Ears, Nose, & Throat: No Symptoms Respiratory: No Symptoms, No Cough, No Dyspnea Cardiac: No Symptoms, No Chest Pain, No Edema, No Syncope Abdominal/Gastrointestinal: No Symptoms, No Abdominal Pain, No Nausea, No Vomiting, No Diarrhea Genitourinary Symptoms: No Symptoms, No Dysuria Musculoskeletal: No Symptoms, No Back Pain, No Neck Pain Skin: No Symptoms, No Rash Neurological: No Symptoms, No Dizziness, No Focal Weakness, No Sensory Changes Psychological: No Symptoms Endocrine: No Symptoms Hematologic/Lymphatic: No Symptoms Immunological/Allergic: No Symptoms All Other Systems: Reviewed and Negative - Past Medical History Pertinent Past Medical History: Yes Neurological History: No Pertinent History ENT History: No Pertinent History Cardiac History: Coronary Artery Disease, High Cholesterol, Hypertension Respiratory History: No Pertinent History Endocrine Medical History: Diabetes Type II Musculoskeletal History: No Pertinent History GI Medical History: GERD History: No Pertinent History Psycho-Social History: No Pertinent History Male Reproductive Disorders: No Pertinent History Other Medical History: chronic pain in back - Past Surgical History Past Surgical History: Yes Neuro Surgical History: No Pertinent History Cardiac: Cardiac Catheterization, Cardiac Stent Respiratory: No Pertinent History Gastrointestinal: Appendectomy, Cholecystectomy, Hernia Repair Genitourinary: No Pertinent History Musculoskeletal: No Pertinent History Male Surgical History: No Pertinent History Other Surgical History: cardiac cath with stent placement, appendectomy, cholecystectomy - Social History Smoking Status: Never smoker Exposure to second hand smoke: No Alcohol Use: None Drug Use: none Patient Lives Alone: No - Nursing Vital Signs Nursing Vital Signs: Initial Vital Signs Temperature 97.2 F 11/18/22 19:55 Pulse Rate 70 11/18/22 19:55 Respiratory Rate 16 11/18/22 19:55 Blood Pressure 142/79 11/18/22 19:55 O2 Sat by Pulse Oximetry 94 L 11/18/22 19:55 Pain Scale Pain Intensity 9 - Physical Exam General Appearance: no apparent distress, alert Eyes, Ears, Nose, Throat Exam: moist mucous membranes Neck Exam: non-tender, full range of motion Cardiovascular/Respiratory Exam: chest non-tender, normal breath sounds, regular rate/rhythm, no respiratory distress Gastrointestinal/Abdominal Exam: non-tender, No tenderness Back Exam: normal inspection, No vertebral tenderness Hips Exam: bilateral: non-tender, normal inspection, normal range of motion, no evidence of injury Legs Exam: bilateral leg: non-tender, normal inspection, normal range of motion, no evidence of injury Knees Exam: bilateral knee: non-tender, normal inspection, normal range of motion, no evidence of injury Ankle Exam: bilateral ankle: non-tender, normal inspection, normal range of motion, no evidence of injury Foot Exam: right foot: non-tender, normal inspection, normal range of motion, no evidence of injury, left foot: pain, soft tissue tenderness, other (Left fifth metatarsal base is tender to palpation. Pain reproduced with movement as well. Overlying soft tissue intact. No open or draining lesions. Compartments are soft. Cap refill less than 2 seconds. PT DP pulse palpable. The involved extremity is neurovascular intact distally) Neuro/Tendon Exam: normal sensation, normal motor functions Mental Status Exam: alert, oriented x 3, cooperative Skin Exam: normal color, warm, dry SpO2 Interpretation: normal SpO2: 94 O2 Delivery: Room Air - Course Nursing assessment & vital signs reviewed: Yes - Radiology Exams Foot X-ray Interpretation: Interpreted by me (Fracture of the left fifth metatarsal base, Bennett fracture) Ordered Tests: Active Orders 24 hr Category Date Time Status FOOT (MINIMUM 3 VIEWS) Stat Exams 11/18/22 20:15 Taken Medication Summary Discontinued Medications Generic Name Dose Route Start Last Admin Trade Name Freq PRN Reason Stop Dose Admin Ketorolac Tromethamine 30 mg 11/18/22 20:35 Ketorolac Tromethamine 30 Mg/Ml Inj IM 11/18/22 20:36 STAT ONE - Progress Progress: improved Progress Note: Patient is a 62-year-old male presents to our ED for evaluation of pain to his left foot. Physical exam reveals tenderness to palpation at the base of the left fifth metatarsal. X-ray reveals a Bennett type fracture at the base of the left fifth metatarsal at the area of patient's tenderness. Patient received IM Toradol for pain control. An Ortho shoe and bilateral axillary crutches were provided. Patient received a referral to orthopedic clinic for follow-up tomorrow. Patient agrees to follow-up as discussed. at bedside. They voiced no other complaints concerns at this time. Portions of this note were created with voice recognition technology. There may be grammatical, spelling, punctuation or sound alike errors Complexity of problems addressed is low acute uncomplicated Complex of data reviewed and analyzed is moderate. Dr. Clayton independently reviewed the x-ray report which reveals a fracture of the base of the fifth metatarsal. Risk complication and or risk morbidity/mortality of patient management is moderate. A prescription for Toradol forwarded to patient's pharmacy. Patient will follow-up with orthopedic clinic as discussed. Time spent to discharge patient approximately 15 minutes. Plan of care established for shared decision making. No social determinants of health present to impede follow-up. Portions of this note were created with voice recognition technology. There may be grammatical, spelling, punctuation or sound alike errors 11/18/22 20:44 Counseled pt/family regarding: diagnosis, need for follow-up, rad results - Departure Departure Disposition: Home Clinical Impression: Fracture of fifth metatarsal bone of left foot, Bennett fracture Condition: Stable Critical Care Time: No Referrals: ALICIA SCHAEFER II [Primary Care Provider] - Follow up/PCP as directed Additional Instructions: Discharge/Care Plan BENNETTBEVERLY was seen on 11/18/22 in the Emergency Room. The patient was counseled regarding Diagnosis,Lab results, Imaging studies, need for follow up and when to return to the Emergency Room. Prescriptions given: Discharge Note I have spoken with the patient and/or caregivers. I have explained the patient's condition, diagnosis and treatment plan based on the information available to me at this time. I have answered the patient's and/or caregiver's questions and addressed any concerns. The patient and/or caregivers have as good understanding of the patient's diagnosis, condition and treatment plan as can be expected at this point. The vital signs have been stable. The patient's condition is stable and appropriate for discharge from the emergency department. The patient will pursue further outpatient evaluation with the primary care physician or other designated or consulting physician as outlined in the discharge instructions. The patient and/or caregivers are agreeable to this plan of care and follow-up instructions have been explained in detail. The patient and/or caregivers have received these instruction. The patient/and or caregivers are aware that any significant change in condition or worsening of symptoms should prompt an immediate return to this or the closest emergency department or call 911. Outpatient Orders: Ortho Referral Time Frame: 1 Day, Facility: [facility], Location: ORTHO CLINIC
[2022-11-18] MEDS ORDERED: TORAdol 30 mg Injection IM ONE (20:35)
[2022-11-18 20:42] VITALS: BP 130/66; PULSE 78; RESP 16
[2022-11-18] MEDS ORDERED: TORAdol 30 mg Injection ONE (20:42)
--- NOTE | 2022-11-19 08:42 | XRAY ---
Indication: Pain following injury. Comparison: None 3 nonweightbearing views left foot demonstrates incomplete transverse fracture base 5th metatarsal. Incidental mild 1st MTP bunion deformity and tiny posterior heel spur. No other bony, articular, or soft tissue abnormalities.
== END 2022-11-18 20:51 | disposition home or self-care (01) ==
LOC: ED 19:38
DX: S92.352A Displaced fracture of fifth metatarsal bone, left foot, initial encounter for closed fracture (principal); E78.5 Hyperlipidemia, unspecified; I10 Essential (primary) hypertension; E11.9 Type 2 diabetes mellitus without complications; Z79.02 Long term (current) use of antithrombotics/antiplatelets; Z79.84 Long term (current) use of oral hypoglycemic drugs; Z79.4 Long term (current) use of insulin; Z79.899 Other long term (current) drug therapy; Z79.891 Long term (current) use of opiate analgesic; Z28.310 Unvaccinated for COVID-19
CPT/HCPCS: 73630; 96372; 99283; J1885

== ENCOUNTER 2022-11-27 05:33 | Day surgery (SDC) | payer OTHER ==
[2022-11-27] MEDS ORDERED: Lactated Ringers 1,000 ML IV SCH (06:30)
[2022-11-27 06:42] VITALS: RESP 18
[2022-11-27] MEDS ORDERED: KEFZOL 1 GM** 3 G in Sodium Chloride 0.9% 50 ML 50 ML IV SCH (07:15)
[2022-11-27] MEDS ORDERED: Marcaine Mpf 0.5% Vial 30 Ml ONE (07:17)
[2022-11-27] MEDS ORDERED: Xylocaine 1% Vial 30 ML PF IJ ONE (07:17)
[2022-11-27 07:23] LABS: Hematocrit 50.1 % (42-50); Hemoglobin 16.9 g/dL (12.5-18.0); Mean Cell Volume 89.6 fL (78-100); Mean Corpuscular Hemoglobin 30.2 pg (26-32); Mean Corpuscular Hgb Concent. 33.7 g/dL (32-36); Mean Platelet Volume 9.7 fL (7.5-11.0); Platelet Count 222 x10^3/uL (150-450); Red Blood Count 5.59 x10^6/uL (4.1-5.6); White Blood Count 9.9 x10^3/uL (4.0-10.5)
[2022-11-27 07:31] LABS: INR 0.91 (0.8-3.0); PTT 27.7 SECONDS (25.1-36.5)
[2022-11-27 07:43] LABS: ALBUMIN 4.3 g/dL (3.5-5.0); ALKALINE PHOSPHATASE 63 U/L (38-126); ANION GAP 15.7 MEQ/L (5-15); BLOOD UREA NITROGEN 17 mg/dL (9-20); CHLORIDE 98 mmol/L (98-107); Carbon Dioxide 26 mmol/L (22-30); Creatinine 1 0.79 mg/dL (0.66-1.25); EST GLOMERULAR FILTRATION RATE > 60.0 ML/MIN; Glucose 155 mg/dL (74-106); Potassium 4.1 mmol/L (3.5-5.1); SGOT/AST 36 U/L (17-59); SGPT/ALT 51 U/L (0-50); SODIUM 136 mmol/L (137-145); Total Protein 7.1 g/dL (6.3-8.2)
[2022-11-27] MEDS ORDERED: Versed 2 MG/2 ML Injection ONE (07:44)
[2022-11-27] MEDS ORDERED: SUBLIMAZE 100 MCG/2 ML ONE ×2 (07:44→09:03)
[2022-11-27] MEDS ORDERED: DIPRIVAN 200 MG/20 ML IV ONE ×2 (07:44→08:15)
[2022-11-27] MEDS ORDERED: Xylocaine-Mpf 2% 5 Ml Vial ONE (07:44)
[2022-11-27] MEDS ORDERED: DEXMEDETOMIDINE 80 MCG/20ML-NS IV ONE (07:45)
[2022-11-27] MEDS ORDERED: Lactated Ringers 1,000 ML IV ONE (08:29)
[2022-11-27] MEDS ORDERED: OXYCODONE-ACETAMINOPHEN 10-325 PO ONE (09:44)
[2022-11-27 09:54] VITALS: TEMP 97.2
[2022-11-27 10:06] VITALS: BP 133/67; PULSE 58; O2SAT 93
--- NOTE | 2022-11-30 09:02 | XRAY ---
Two minutes and 39 seconds of fluoroscopy was used in surgery for a ORIF left 5th metatarsal fracture.
--- NOTE | 2022-11-30 11:22 | OP ---
SURGERY DATE: 11/27/2022 0811 PREOPERATIVE DIAGNOSES: 1) Bennett fracture fifth metatarsal left foot. 2) Left foot pain. POSTOPERATIVE DIAGNOSES: 1) Bennett fracture fifth metatarsal left foot. 2) Left foot pain. PROCEDURE: Open reduction internal fixation of the left fifth metatarsal fracture. SURGEON: Eron Vega DPM. MANAGING CONSULTANT CLINICAL PROFESSOR: None. ANESTHESIA: Monitored anesthesia care with an intraoperative injection consisting of 20 cc of a 1:1 mixture of 1% lidocaine plain and 0.5% bupivacaine plain injected in ankle block-type fashion HEMOSTASIS: Ankle tourniquet set to 250 mm of Mercury 15 total tourniquet minutes. ESTIMATED BLOOD LOSS: Minimal. MATERIALS: 4-0 Monocryl, 3-0 Nylon, 5.5 x 42 Bennett screw Ashli. INJECTABLES: 20 cc of a 1:1 mixture of 1% lidocaine plain and 0.5% bupivacaine plain injected in ankle block type fashion. INDICATION FOR SURGERY: Suresh is a very pleasant 62-year-old male who was seen by orthopedic nurse practitioner, Cecy Bhat, who thought to contact me in relation to this patient because he had suffered a Bennett fracture. The patient is a diabetic and does have some degree of neuropathy. As a result of this fracture, there is a higher risk of nonunion and given patient factors there is a risk of nonunion so decision was held in conversation with the patient to proceed with surgical intervention for this issue to prevent that outcome. The patient understands all risks, complications and benefits of the surgical intervention at this time including but not limited to infection, hematoma, seroma, possibility of delayed bone healing, nonbone healing, possibility of failure of surgical hardware and possible need for surgical intervention at a later date. No guarantees were provided as to the outcome of surgery. It is at this time we decided to proceed. DESCRIPTION OF PROCEDURE AND FINDINGS: The patient was brought into the OR and placed onto the OR table in the supine position. At this time monitored anesthesia care was administered until the patient was sedated. At this time under aseptic technique, a block was performed at the level of the ankle consisting of 20 cc of a 1:1 mixture of 1% lidocaine plain and 0.5% bupivacaine plain focusing primarily on the deep peroneal, superficial peroneal and sural nerve distributions. The left lower extremity was prepped and draped in the typical sterile fashion and lowered onto the surgical field. At this time under fluoroscopic guidance a 3 cm incision was made approximately 3 cm from the base of the fifth metatarsal. A K-wire was inserted making sure to be high and inside on the base of the metatarsal wall spanning the fracture. At this time the K-wire was advanced. A counter sink was introduced and utilized to double the surface where the head would sit in order to prevent any irritation within the joint. At this time a drill was introduced and the medullary cavity at its narrowest margins were deemed to be at approximately 5.5. The decision was made to use a 5.5 screw and 42 mm in length to accommodate the two-thirds of the length of the metatarsal. Under direct visualization a 42 mm screw was introduced respecting two-thirds of the metatarsal length this was solid due to patient factor avoiding cannulated screws. From that standpoint final fluoroscopic pictures were taken. The incision was flushed with copious amounts of sterile saline. 4-0 Monocryl was then utilized to coapt the surgical incision subcutaneous edges in simple interrupted buried-type fashion and then horizontal mattress suture was utilized to coapt the skin. A dressing consisting of Betadine, Adaptic, 4x4's, Kerlix and LISBETH was applied to the patients left lower extremity and the patient was provided CAM boot prior to being reversed from anesthesia and returned to the postoperative anesthesia care unit with vital signs stable and vascular status intact. The patient handled the anesthesia as well as the procedure without significant complication. Postoperative orders as indicated in the patient's discharge chart.
--- NOTE | 2022-11-30 16:41 | XRAY ---
Indication: ORIF left 5th metatarsal fracture. Intraoperative fluoroscopy provided for 2 minutes 39 seconds. 11 digital spot images submitted for interpretation ultimately demonstrates single screw fixating 5th metatarsal base fracture in good apposition/alignment. Correlate with intraoperative findings/report.
== END 2022-11-27 10:25 | disposition home or self-care (01) ==
LOC: SDC 05:33
PROVIDERS: ATTEND Podiatrist Foot & Ankle Surgery
DX: S92.352A Displaced fracture of fifth metatarsal bone, left foot, initial encounter for closed fracture (principal); M79.672 Pain in left foot; E11.9 Type 2 diabetes mellitus without complications
CPT/HCPCS: 36415; 73630; 76000; 80053; 82947; 83036; 85027; 85610; 85730; J0690; J2001; J2250; J2704; J3010; A9270-GY

== ENCOUNTER 2023-07-22 22:43 | Emergency (ER) | payer OTHER ==
[2023-07-22 23:01] VITALS: RESP 20; TEMP 97.8
[2023-07-22] MEDS ORDERED: Hydromorphone 1 mg/ml Injection ONE (23:23)
[2023-07-22] MEDS ORDERED: Cyclobenzaprine 10 MG ONE (23:31)
[2023-07-22] MEDS: Cyclobenzaprine 10 MG PO ONE (23:39)
[2023-07-22] MEDS: Hydromorphone 1 mg/ml Injection IM ONE (23:39)
[2023-07-22] MEDS: Norflex 60 MG/2 ML IM ONE (23:42)
[2023-07-22 23:50] VITALS: PULSE 72; O2SAT 94
--- NOTE | 2023-07-23 00:06 | ERPHSYRPT ---
- History of Present Illness Time Seen by Provider: 07/22/23 23:04 Source: patient, family Exam Limitations: no limitations Patient Subjective Stated Complaint: pt states that Hilda, nurse, said I need a MRI or an ultrasound. I have a budgling disc in L3,4,5. pt states I have pain to my rt groin and back Triage Nursing Assessment: pt came into the er via wheelchair; pt transfer self to bed; pt is axo x3; c/o back pain; pt states 10/10 pain to lower back; limited ROM to back; c/o pain to rt groin; no respiratory distress; hypertensive; skin PDW Physician History: 63-year-old morbidly obese male with history of chronic back pain needing regular radiofrequency ablation by pain management with recent worsening of low back pain had MRI done at [facility] showing disc herniation L3-L4 level on the right side. 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 Patient report he has to lie down after couple of hours because pain gets unbearable. Has chronic tingly sensation in lower extremities which is not any worse than usual. No weakness of lower extremities. No perineal numbness. No loss of bowel or bladder control. Pain radiates to the right groin area. Denies any new fall or trauma. Patient takes Percocet and pain was not getting controlled and decided to be seen in the ER. Patient has upcoming appointment with pain management early next week. Allergies/Adverse Reactions: morphine Adverse Reaction (Mild, Verified 07/22/23 22:51) aggravates gerd Home Medications: Amlodipine Besylate 10 mg PO HS 05/21/19 [History] Aspirin [Aspirin EC] 81 mg PO DAILY 05/21/19 [History] Clopidogrel Bisulfate [Clopidogrel] 75 mg PO HS 05/21/19 [History] Empagliflozin [Jardiance] 25 mg PO DAILY 05/21/19 [History] Glimepiride 4 mg [Amaryl 4 mg] 4 mg PO DAILY 05/21/19 [History] Insulin Glargine,Hum.rec.anlog [Basaglar Kwikpen U-100] 100 unit SQ HS 05/21/19 [History] Insulin Lispro [Humalog Kwikpen U-100] 58 units SQ BID 05/21/19 [History] Metoprolol Succinate 50 mg PO DAILY 05/21/19 [History] Olmesartan/Hydrochlorothiazide [Olmesartan-Hctz 40-25 mg Tab] 1 tab PO DAILY 05/21/19 [History] Omeprazole 40 mg PO DAILY 05/21/19 [History] Oxycodone HCl/Acetaminophen [Oxycodone-Acetaminophen 10-325] 1 tab PO QID 05/21/19 [History] Pravastatin Sodium 20 mg PO HS 05/21/19 [History] Hx Tetanus, Diphtheria Vaccination/Date Given: Yes Hx Influenza Vaccination/Date Given: No Hx Pneumococcal Vaccination/Date Given: No Immunizations Up to Date: No Travel Risk - International Travel Have you traveled outside of the country in past 3 weeks: No - Emerging Infectious Disease Are you exhibiting symptoms associated with any current EIDs: No - Review of Systems Constitutional: No Symptoms Ears, Nose, & Throat: No Symptoms Respiratory: No Symptoms Cardiac: No Symptoms Abdominal/Gastrointestinal: No Symptoms Genitourinary Symptoms: No Symptoms Musculoskeletal: Back Pain Skin: No Symptoms Neurological: No Symptoms Endocrine: No Symptoms Hematologic/Lymphatic: No Symptoms Immunological/Allergic: No Symptoms - Past Medical History Pertinent Past Medical History: Yes Neurological History: No Pertinent History ENT History: No Pertinent History Cardiac History: Coronary Artery Disease, High Cholesterol, Hypertension Respiratory History: No Pertinent History, Sleep Apnea Endocrine Medical History: Diabetes Type II Musculoskeletal History: Degenerative Disk Disease GI Medical History: GERD History: No Pertinent History Psycho-Social History: No Pertinent History Male Reproductive Disorders: No Pertinent History Other Medical History: chronic pain in back - Past Surgical History Past Surgical History: Yes Neuro Surgical History: No Pertinent History Cardiac: Cardiac Catheterization, Cardiac Stent Respiratory: No Pertinent History Gastrointestinal: Appendectomy, Cholecystectomy, Hernia Repair Genitourinary: No Pertinent History Musculoskeletal: No Pertinent History Male Surgical History: No Pertinent History Other Surgical History: cardiac cath with stent placement - Social History Smoking Status: Never smoker Exposure to second hand smoke: No Alcohol Use: None Drug Use: none Patient Lives Alone: No - Nursing Vital Signs Nursing Vital Signs: Initial Vital Signs Temperature 97.8 F 07/22/23 22:51 Pulse Rate 75 07/22/23 22:51 Respiratory Rate 20 07/22/23 22:51 Blood Pressure 160/92 07/22/23 22:51 O2 Sat by Pulse Oximetry 93 L 07/22/23 22:51 Pain Scale Pain Intensity 10 - Physical Exam General Appearance: no apparent distress, alert Eye Exam: PERRL/EOMI Ears, Nose, Throat Exam: normal ENT inspection, TMs normal, pharynx normal, moist mucous membranes Neck Exam: normal inspection, supple, full range of motion Respiratory Exam: normal breath sounds, lungs clear Cardiovascular Exam: regular rate/rhythm, normal heart sounds Gastrointestinal Exam: soft, normal bowel sounds, No tenderness Male Genetalia Exam: normal genitalia, No testicular tenderness, No testicular mass Back Exam: normal inspection, vertebral tenderness, decreased range of motion, muscle spasm, point tenderness (Lower lumbar and right sacroiliac area. Positive straight leg raising test at 45 degrees on right.) Extremity Exam: normal inspection, normal range of motion, pelvis stable Neurologic Exam: alert, oriented x 3, cooperative, funding analyst II-XII nml as tested, sensation nml, No motor deficits Skin Exam: normal color SpO2 Interpretation: normal SpO2: 94 O2 Delivery: Room Air Ordered Tests: Medication Summary Discontinued Medications Generic Name Dose Route Start Last Admin Trade Name Greg PRN Reason Stop Dose Admin Cyclobenzaprine HCl 10 mg 07/22/23 23:32 07/22/23 23:39 Cyclobenzaprine Hcl 10 Mg Tablet PO 07/22/23 23:33 10 mg STAT ONE Administration Cyclobenzaprine HCl Confirm 07/22/23 23:31 Cyclobenzaprine Hcl 10 Mg Tablet Administered 07/22/23 23:32 Dose 10 mg .ROUTE .STK-MED ONE Hydromorphone HCl 1 mg 07/22/23 23:21 07/22/23 23:39 Hydromorphone 1 Mg/1ml Inj IM 07/22/23 23:22 1 mg STAT ONE Administration Hydromorphone HCl Confirm 07/22/23 23:23 Hydromorphone 1 Mg/1ml Inj Administered 07/22/23 23:24 Dose 1 mg .ROUTE .STK-MED ONE Orphenadrine Citrate 60 mg 07/22/23 23:21 07/22/23 23:42 Orphenadrine Citrate 60 Mg/2 Ml Vial IM 07/22/23 23:22 Not Given STAT ONE - Progress Progress: improved, re-examined Progress Note: 07/23/23 00:13 63-year-old is evaluated for worsening low back pain. Patient has history of chronic back pain and recent MRI showing some disc herniation. Patient has appointment with pain management early next week. Has negative neuro exam in lower extremities. No loss of bowel or bladder control. No cauda equina symptoms. Patient is given muscle relaxants and Dilaudid, reevaluation feeling much improved with increased mobility. I do not think patient needs any new imaging as has MRI done recently and has chronic pain with no new focal symptoms. He is advised to keep appointment with his pain management and continue with current medications. Discussed signs symptoms of worsening needing return to ER which she seems understanding. Stable for discharge. Counseled pt/family regarding: diagnosis, need for follow-up Medical Desision Making - Independent Historian Additional History obtained from: Spouse - Departure Departure Disposition: Home Clinical Impression: Acute exacerbation of chronic low back pain Condition: Stable Critical Care Time: No Referrals: ALICIA SCHAEFER II [Primary Care Provider] - Follow up with PCP 1 day Instructions: Sciatica (DC), Low Back Pain (DC) Additional Instructions: Follow-up with your primary care and pain management for reevaluation. Return to ER for intractable pain, numbness weakness of lower extremity, saddle anesthesia or loss of bowel or bladder control. Continue with your current pain medications.
[2023-07-23 00:24] VITALS: BP 144/84
== END 2023-07-23 00:36 | disposition home or self-care (01) ==
LOC: ED 22:43
DX: G89.29 Other chronic pain (principal); M54.50 Low back pain, unspecified; E78.5 Hyperlipidemia, unspecified; I10 Essential (primary) hypertension; E11.9 Type 2 diabetes mellitus without complications; Z79.02 Long term (current) use of antithrombotics/antiplatelets; Z79.84 Long term (current) use of oral hypoglycemic drugs; Z79.4 Long term (current) use of insulin; Z79.891 Long term (current) use of opiate analgesic; Z79.899 Other long term (current) drug therapy
CPT/HCPCS: 96372; 99283; J1170; A9270-GY

== ENCOUNTER 2023-08-27 20:20 | Emergency (ER) | payer OTHER | END 2023-08-27 21:28 | disposition left against medical advice (07) | LOC: ED 20:20 | DX: Z53.21 Procedure and treatment not carried out due to patient leaving prior to being seen by health care provider (principal) ==

== ENCOUNTER 2023-12-29 20:23 | Emergency (ER) | payer OTHER ==
[2023-12-29 22:11] VITALS: TEMP 98.1
--- NOTE | 2023-12-29 22:40 | ERPHSYRPT ---
- History of Present Illness Time Seen by Provider: 12/29/23 22:37 Source: patient Exam Limitations: no limitations Patient Subjective Stated Complaint: c/o of headache, body aches, stomach pain Triage Nursing Assessment: Patient brought to ED by with c/o of headache, body aches, stomach pain, and dizziness. States symptoms started Wednesday and he has had to call in sick for work.Patient vomitted this morning but has hasn't vomitted since. Patient states he just doesn't feel good. Patient rates pain 8/10, N/V/D, hypertensive, gait steady, pulses normal, skin w/n/d, no fever noted, pt doesn't appear to be in any distress at this time. Physician History: 63-year-old male history of diabetes presents to our ED for evaluation of headache generalized body ache nausea vomiting slight dizziness mild abdominal discomfort. Symptoms ongoing for 3 days. Patient states he called off work because he was feeling unwell. No associated chest pain. No shortness of breath. No fever at this time. No rash. Symptoms are constant. Symptoms are moderate in intensity. No specific worsening improving factors. No obvious sick contacts. Patient states he is otherwise healthy. He voices no other complaints or concerns at this time. Portions of this note were created with voice recognition technology. There may be grammatical, spelling, punctuation or sound alike errors Timing/Duration: day(s) Severity: moderate (3 days) Modifying Factors: Improves With: nothing Associated Symptoms: nausea, vomiting Allergies/Adverse Reactions: morphine Adverse Reaction (Mild, Verified 12/29/23 22:11) aggravates gerd Home Medications: Amlodipine Besylate 10 mg PO HS 05/21/19 [History] Aspirin [Aspirin EC] 81 mg PO DAILY 05/21/19 [History] Clopidogrel Bisulfate [Clopidogrel] 75 mg PO HS 05/21/19 [History] Empagliflozin [Jardiance] 25 mg PO DAILY 05/21/19 [History] Glimepiride 4 mg [Amaryl 4 mg] 4 mg PO DAILY 05/21/19 [History] Insulin Lispro [Humalog Kwikpen U-100] 120 units SQ BID 05/21/19 [History] Metoprolol Succinate 50 mg PO DAILY 05/21/19 [History] Olmesartan/Hydrochlorothiazide [Olmesartan-Hctz 40-25 mg Tab] 1 tab PO DAILY 05/21/19 [History] Omeprazole 40 mg PO DAILY 05/21/19 [History] Oxycodone HCl/Acetaminophen [Oxycodone-Acetaminophen 10-325] 1 tab PO QID 05/21/19 [History] Pravastatin Sodium 20 mg PO HS 05/21/19 [History] Insulin Glargine,Hum.rec.anlog [Lantus] 90 units IJ DAILY 12/30/23 [History] Tirzepatide [Mounjaro] 2.5 mg SQ WEEKLY 12/30/23 [History] Hx Tetanus, Diphtheria Vaccination/Date Given: Yes Hx Influenza Vaccination/Date Given: No Hx Pneumococcal Vaccination/Date Given: No Travel Risk - International Travel Have you traveled outside of the country in past 3 weeks: No - Emerging Infectious Disease Are you exhibiting symptoms associated with any current EIDs: Yes Symptoms: Diarrhea, Headaches/Body Aches/, Vomitting - Review of Systems Constitutional: No Symptoms, No Fever, No Chills Eyes: No Symptoms Ears, Nose, & Throat: No Symptoms Respiratory: No Symptoms, No Cough, No Dyspnea Cardiac: No Symptoms, No Chest Pain, No Edema, No Syncope Abdominal/Gastrointestinal: No Symptoms, No Abdominal Pain, No Nausea, No Vomiting, No Diarrhea Genitourinary Symptoms: No Symptoms, No Dysuria Musculoskeletal: No Symptoms, No Back Pain, No Neck Pain Skin: No Symptoms, No Rash Neurological: No Symptoms, No Dizziness, No Focal Weakness, No Sensory Changes Psychological: No Symptoms Endocrine: No Symptoms Hematologic/Lymphatic: No Symptoms Immunological/Allergic: No Symptoms All Other Systems: Reviewed and Negative - Past Medical History Pertinent Past Medical History: Yes Neurological History: No Pertinent History ENT History: No Pertinent History Cardiac History: Coronary Artery Disease, High Cholesterol, Hypertension Respiratory History: No Pertinent History, Sleep Apnea Endocrine Medical History: Diabetes Type I Musculoskeletal History: Degenerative Disk Disease GI Medical History: GERD History: No Pertinent History Psycho-Social History: No Pertinent History Male Reproductive Disorders: No Pertinent History Other Medical History: chronic pain in back - Past Surgical History Past Surgical History: Yes Neuro Surgical History: No Pertinent History Cardiac: Cardiac Catheterization, Cardiac Stent Respiratory: No Pertinent History Gastrointestinal: Appendectomy, Cholecystectomy, Hernia Repair Genitourinary: No Pertinent History Musculoskeletal: No Pertinent History, Orthopedic Surgery Male Surgical History: No Pertinent History Other Surgical History: cardiac cath with stent placement, rods in Left foot - Social History Smoking Status: Never smoker Exposure to second hand smoke: No Alcohol Use: None Drug Use: none Patient Lives Alone: No - Social Determinants of Health Will the patient participate in the screening: Yes Do you worry about a steady place to live?: No Do you have any problems with any of the following?: No known problems In the past 12 months,have you had to go without utilities?: No Transportation Issues: No Has anyone in your support network made you feel unsafe?: No Have you or anyone in your house had to go without enough: No - Nursing Vital Signs Nursing Vital Signs: Initial Vital Signs Temperature 98.1 F 12/29/23 21:58 Pulse Rate 77 12/29/23 21:58 Respiratory Rate 16 12/29/23 21:58 Blood Pressure 155/84 12/29/23 21:58 O2 Sat by Pulse Oximetry 95 12/29/23 21:58 Pain Scale Pain Intensity 5 - Physical Exam General Appearance: no apparent distress, alert Eye Exam: PERRL/EOMI, eyes nml inspection Ears, Nose, Throat Exam: normal ENT inspection, TMs normal, pharynx normal, dry mucous membranes (Dry appearing oral mucous membranes) Neck Exam: normal inspection, non-tender, supple, full range of motion Respiratory Exam: normal breath sounds, lungs clear, airway intact, No respiratory distress Cardiovascular Exam: regular rate/rhythm, normal heart sounds, normal peripheral pulses Gastrointestinal/Abdomen Exam: soft, normal bowel sounds, No tenderness, No mass Back Exam: normal inspection, normal range of motion, No CVA tenderness, No vertebral tenderness Extremity Exam: normal inspection, normal range of motion, pelvis stable Neurologic Exam: alert, oriented x 3, cooperative, neighborhood aide II-XII nml as tested, normal mood/affect, nml cerebellar function, nml station & gait, sensation nml, No motor deficits Skin Exam: normal color, warm, dry, No rash Lymphatic Exam: No adenopathy SpO2 Interpretation: normal SpO2: 95 O2 Delivery: Room Air - Course Nursing assessment & vital signs reviewed: Yes EKG Interpreted by Me: RATE (80), Sinus Rhythm, NORMAL AXIS, NORMAL INTERVALS, NORMAL QRS - Radiology Exams Chest X-ray Interpretation: Interpreted by me (Lungs are clear no acute findings) Ordered Tests: Active Orders 24 hr Category Date Time Status 3D Animator STAT Care 12/29/23 22:33 Active EKG-ER Only STAT Care 12/29/23 22:33 Active IV Insertion STAT Care 12/29/23 22:33 Active Pulse Oximetry (ED) STAT Care 12/29/23 22:33 Active CHEST 1 VIEW (PORTABLE) Stat Exams 12/29/23 22:33 Taken CBC W DIFF Stat Lab 12/29/23 22:35 Completed CMP Stat Lab 12/29/23 22:35 Completed TROPONIN Q4H Lab 12/29/23 22:35 Completed TROPONIN Q4H Lab 12/30/23 02:45 Ordered TROPONIN Q4H Lab 12/30/23 06:45 Ordered UA W/RFX UR CULTURE Stat Lab 12/29/23 22:30 Completed Medication Summary Generic Name Dose Route Start Last Admin Trade Name Freq PRN Reason Stop Dose Admin Sodium Chloride 1,000 mls @ 100 mls/hr 12/29/23 22:45 12/30/23 01:05 Sodium Chloride 0.9% 1000 Ml IV 01/28/24 22:44 Infused .Q10H RANCHO Infusion Discontinued Medications Generic Name Dose Route Start Last Admin Trade Name Freq PRN Reason Stop Dose Admin Ketorolac Tromethamine 30 mg 12/29/23 22:35 12/29/23 22:56 Ketorolac Tromethamine 30 Mg/Ml Inj IV 12/29/23 22:36 30 mg STAT ONE Administration Ketorolac Tromethamine Confirm 12/29/23 22:48 Ketorolac Tromethamine 30 Mg/Ml Inj Administered 12/29/23 22:49 Dose 30 mg .ROUTE .STK-MED ONE Prochlorperazine Edisylate 10 mg 12/29/23 22:36 12/29/23 22:58 Prochlorperazine Edisylate 10 Mg/2 Ml Vial IV 12/29/23 22:37 10 mg STAT ONE Administration Prochlorperazine Edisylate Confirm 12/29/23 22:48 Prochlorperazine Edisylate 10 Mg/2 Ml Vial Administered 12/29/23 22:49 Dose 10 mg .ROUTE .STK-MED ONE Lab/Rad Data: Laboratory Result Diagrams 12/29/23 22:35 12/29/23 22:35 Laboratory Results 1012/29/23 12/29/23 Range/Units 22:40 22:35 22:35 WBC (4.23-9.07) x10^3/uL RBC (4.63-6.08) x10^6/uL Hgb (13.7-17.5) g/dL Hct (40.1-51.0) % MCV (79.0-92.2) fL MCH (25.7-32.2) pg MCHC (32.3-36.5) g/dL RDW (11.6-14.4) % Plt Count (163-337) x10^3/uL MPV (9.4-12.4) fL Gran % (34.0-67.9) % Immature Gran % (Auto) (0.001-0.429) % Nucleat RBC Rel Count (0.00-0.2) % Eos # (Auto) (0.04-0.54) x10^3/uL Immature Gran # (Auto) (0.001-0.031) x10^3u/L Absolute Lymphs (auto) (1.32-3.57) x10^3/uL Absolute Monos (auto) (0.30-0.82) x10^3/uL Absolute Nucleated RBC (0.00-0.012) x10^3u/L Lymphocytes % (21.8-53.1) % Monocytes % (5.3-12.2) % Eosinophils % (0.8-7.0) % Basophils % (0.2-1.2) % Absolute Granulocytes (1.78-5.38) x10^3/uL Basophils # (0.01-0.08) x10^3/uL Sodium 137 (135-145) mmol/L Potassium 4.7 (3.5-5.1) mmol/L Chloride 98 (98-107) mmol/L Carbon Dioxide 28 (22-30) mmol/L Anion Gap 16.0 H (5-15) MEQ/L BUN 13 (9-20) mg/dL Creatinine 0.95 (0.66-1.25) mg/dL Estimated GFR 89.4 ML/MIN Glucose 152 H (74-106) mg/dL Calcium 9.5 (8.4-10.2) mg/dL Total Bilirubin 0.50 (0.2-1.3) mg/dL AST 42 (17-59) U/L ALT 65 H (0-50) U/L Alkaline Phosphatase 106 (38-126) U/L Troponin I < 0.012 (0.000-0.033) ng/mL Serum Total Protein 6.9 (6.3-8.2) g/dL Albumin 4.2 (3.5-5.0) g/dL Urine Color (Yellow) Urine Appearance (Clear) Urine pH (4.6-8.0) Ur Specific Wylie (1.005-1.030) Urine Protein (Negative) Urine Glucose (UA) (Negative) mg/dL Urine Ketones (Negative) Urine Blood (Negative) Urine Nitrite (Negative) Urine Bilirubin (Negative) Urine Urobilinogen (0.2) mg/dL Ur Leukocyte Esterase (Negative) U Hyaline Cast (Auto) (0-2) /LPF Urine Microscopic RBC (0-5) /HPF Urine Microscopic WBC (0-5) /HPF Ur Epithelial Cells (None Seen) /HPF Urine Bacteria (None Seen) /HPF Urine Culture Reflexed (NO) Influenza Type A Ag NEGATIVE (NEGATIVE) Influenza Type B Ag NEGATIVE (NEGATIVE) RSV (PCR) NEGATIVE (NEGATIVE) SARS-CoV-2 (PCR) NEGATIVE (NEGATIVE) 12/29/23 12/29/23 Range/Units 22:35 22:30 WBC 14.6 H (4.23-9.07) x10^3/uL RBC 5.73 (4.63-6.08) x10^6/uL Hgb 17.2 (13.7-17.5) g/dL Hct 50.7 (40.1-51.0) % MCV 88.5 (79.0-92.2) fL MCH 30.0 (25.7-32.2) pg MCHC 33.9 (32.3-36.5) g/dL RDW 12.6 (11.6-14.4) % Plt Count 266 (163-337) x10^3/uL MPV 9.6 (9.4-12.4) fL Gran % 61.2 (34.0-67.9) % Immature Gran % (Auto) 0.8 H (0.001-0.429) % Nucleat RBC Rel Count 0.0 (0.00-0.2) % Eos # (Auto) 1.25 H (0.04-0.54) x10^3/uL Immature Gran # (Auto) 0.12 H (0.001-0.031) x10^3u/L Absolute Lymphs (auto) 3.10 (1.32-3.57) x10^3/uL Absolute Monos (auto) 1.17 H (0.30-0.82) x10^3/uL Absolute Nucleated RBC 0.00 (0.00-0.012) x10^3u/L Lymphocytes % 21.2 L (21.8-53.1) % Monocytes % 8.0 (5.3-12.2) % Eosinophils % 8.5 H (0.8-7.0) % Basophils % 0.3 (0.2-1.2) % Absolute Granulocytes 8.95 H (1.78-5.38) x10^3/uL Basophils # 0.05 (0.01-0.08) x10^3/uL Sodium (135-145) mmol/L Potassium (3.5-5.1) mmol/L Chloride (98-107) mmol/L Carbon Dioxide (22-30) mmol/L Anion Gap (5-15) MEQ/L BUN (9-20) mg/dL Creatinine (0.66-1.25) mg/dL Estimated GFR ML/MIN Glucose (74-106) mg/dL Calcium (8.4-10.2) mg/dL Total Bilirubin (0.2-1.3) mg/dL AST (17-59) U/L ALT (0-50) U/L Alkaline Phosphatase (38-126) U/L Troponin I (0.000-0.033) ng/mL Serum Total Protein (6.3-8.2) g/dL Albumin (3.5-5.0) g/dL Urine Color Yellow (Yellow) Urine Appearance Clear (Clear) Urine pH 5.5 (4.6-8.0) Ur Specific Wylie >=1.030 A (1.005-1.030) Urine Protein Negative (Negative) Urine Glucose (UA) >=1000 A (Negative) mg/dL Urine Ketones Negative (Negative) Urine Blood Negative (Negative) Urine Nitrite Negative (Negative) Urine Bilirubin Negative (Negative) Urine Urobilinogen 1.0 A (0.2) mg/dL Ur Leukocyte Esterase Negative (Negative) U Hyaline Cast (Auto) NONE SEEN (0-2) /LPF Urine Microscopic RBC 0-2 (0-5) /HPF Urine Microscopic WBC 0-2 (0-5) /HPF Ur Epithelial Cells None Seen (None Seen) /HPF Urine Bacteria None Seen (None Seen) /HPF Urine Culture Reflexed NO (NO) Influenza Type A Ag (NEGATIVE) Influenza Type B Ag (NEGATIVE) RSV (PCR) (NEGATIVE) SARS-CoV-2 (PCR) (NEGATIVE) - Progress Progress: improved Progress Note: 63-year-old male history of diabetes presents to our ED for evaluation of bodyaches headache generally feeling unwell. Physical exam essentially nonre markable. Workup revealed a leukocytosis however chest x-ray within normal limits no abnormalities observed. Formal read pending. UA negative for UTI. Patient was observed to be dehydrated based on specific gravity and physical exam. Patient received IV fluids. Patient received Toradol and Compazine for headache. Symptoms resolved. EKG normal sinus rhythm. Troponin negative. Patient asymptomatic and states he is ready for discharge. We ambulated patient throughout our ED. O2 sat was 96 to 97%. Patient had no complaints. Patient states he is ready for discharge and agreed to follow-up with his primary care doctor within 48 hours for reevaluation. Portions of this note were created with voice recognition technology. There may be grammatical, spelling, punctuation or sound alike errors Complexity of problem addressed is moderate acute complicated. No critical care time. Complexity data reviewed and analyzed is moderate. Test ordered chest reviewed results analyzed and correlated clinically with history and physical exam. Risk of complication and or risk of morbidity/mortality of patient management is low. Vital stable. Time spent to discharge patient approximately 15 minutes. Plan of care established for shared decision making. No social determinants of health present to impede follow-up. Portions of this note were created with voice recognition technology. There may be grammatical, spelling, punctuation or sound alike errors 12/30/23 01:14 Counseled pt/family regarding: lab results, diagnosis, need for follow-up, rad results - Departure Departure Disposition: Home Clinical Impression: Viral syndrome, Dehydration, Leukocytosis, Body aches Condition: Stable Critical Care Time: No Referrals: ALICIA SCHAEFER II [Primary Care Provider] - Follow up/PCP as directed Additional Instructions: Discharge/Care Plan BEVERLY BARTHOLOMEW Anam was seen on 12/30/23 in the Emergency Room. The patient was counseled regarding Diagnosis,Lab results, Imaging studies, need for follow up and when to return to the Emergency Room. Prescriptions given: Discharge Note I have spoken with the patient and/or caregivers. I have explained the patient's condition, diagnosis and treatment plan based on the information available to me at this time. I have answered the patient's and/or caregiver's questions and addressed any concerns. The patient and/or caregivers have as good understanding of the patient's diagnosis, condition and treatment plan as can be expected at this point. The vital signs have been stable. The patient's condition is stable and appropriate for discharge from the emergency department. The patient will pursue further outpatient evaluation with the primary care physician or other designated or consulting physician as outlined in the discharge instructions. The patient and/or caregivers are agreeable to this plan of care and follow-up instructions have been explained in detail. The patient and/or caregivers have received these instruction. The patient/and or caregivers are aware that any significant change in condition or worsening of symptoms should prompt an immediate return to this or the closest emergency department or call 911.
[2023-12-29 22:45] LABS: Absolute Neutrophil Ct (ANC) 8.95 x10^3/uL (1.78-5.38); BASOPHIL % 0.3 % (0.2-1.2); Basophil (Absolute #) 0.05 x10^3/uL (0.01-0.08); Eosinophil % 8.5 % (0.8-7.0); Eosinophil (Absolute #) 1.25 x10^3/uL (0.04-0.54); Hematocrit 50.7 % (40.1-51.0); Hemoglobin 17.2 g/dL (13.7-17.5); IMMATURE GRAN # 0.12 x10^3u/L (0.001-0.031); IMMATURE GRAN % 0.8 % (0.001-0.429); Lymphocytes % 21.2 % (21.8-53.1); Mean Cell Volume 88.5 fL (79.0-92.2); Mean Corpuscular Hgb Concent. 33.9 g/dL (32.3-36.5); Mean Platelet Volume 9.6 fL (9.4-12.4); Monocyte (Absolute #) 1.17 x10^3/uL (0.30-0.82); Neutrophil % 61.2 % (34.0-67.9); Platelet Count 266 x10^3/uL (163-337); Red Blood Count 5.73 x10^6/uL (4.63-6.08); Red Cell Distribution Width 12.6 % (11.6-14.4); White Blood Count 14.6 x10^3/uL (4.23-9.07)
[2023-12-29 22:46] LABS: Appearance Clear (Clear); Bacteria None Seen /HPF (None Seen); Bilirubin Negative (Negative); Blood Negative (Negative); Epithelial Cells None Seen /HPF (None Seen); Glucose, Urine >=1000 mg/dL (Negative); Hyaline Casts NONE SEEN /LPF (0-2); Ketones Negative (Negative); Leukocyte Esterase Negative (Negative); Nitrite Negative (Negative); Ph 5.5 (4.6-8.0); Protein,Urine Dip Negative (Negative); RBC 0-2 /HPF (0-5); Specific Gravity >=1.030 (1.005-1.030); WBC 0-2 /HPF (0-5)
[2023-12-29] MEDS ORDERED: TORAdol 30 mg Injection ONE (22:48)
[2023-12-29] MEDS ORDERED: Compazine 10 MG/2 ML ONE (22:48)
[2023-12-29] MEDS ORDERED: Sodium Chloride 0.9% 1000 ML 1,000 ML ONE (22:48)
[2023-12-29] MEDS: Sodium Chloride 0.9% 1000 ML 1,000 ML IV SCH (22:55)
[2023-12-29] MEDS: TORAdol 30 mg Injection IV ONE (22:56)
[2023-12-29 22:57] LABS: ALBUMIN 4.2 g/dL (3.5-5.0); BILIRUBIN,TOTAL 0.5 mg/dL (0.2-1.3); Calcium 9.5 mg/dL (8.4-10.2); Creatinine 1 0.95 mg/dL (0.66-1.25); EST GLOMERULAR FILTRATION RATE 89.4 ML/MIN; Potassium 4.7 mmol/L (3.5-5.1); Total Protein 6.9 g/dL (6.3-8.2)
[2023-12-29] MEDS: Compazine 10 MG/2 ML IV ONE (22:58)
[2023-12-29 23:22] LABS: INFLUENZA A NEGATIVE (NEGATIVE); INFLUENZA B NEGATIVE (NEGATIVE); RESPIRATORY SYNCTIAL VIRUS NEGATIVE (NEGATIVE); SARS-CoV-2 Xpert Express NEGATIVE (NEGATIVE)
[2023-12-30 01:04] VITALS: BP 139/79; PULSE 77; RESP 10
[2023-12-30 01:11] VITALS: O2SAT 95
--- NOTE | 2023-12-30 09:05 | XRAY ---
Indication: Short of breath. Comparison: September 02, 2020 Portable chest inflated and remains clear. Heart not enlarged. Bony thorax intact again with mild degenerative changes. No new/acute findings.
== END 2023-12-30 01:24 | disposition home or self-care (01) ==
LOC: ED 20:23
DX: B34.9 Viral infection, unspecified (principal); E86.0 Dehydration; D72.829 Elevated white blood cell count, unspecified; M79.10 Myalgia, unspecified site; R51.9 Headache, unspecified; R11.2 Nausea with vomiting, unspecified; R42 Dizziness and giddiness; R10.9 Unspecified abdominal pain; E78.5 Hyperlipidemia, unspecified; I10 Essential (primary) hypertension; E10.9 Type 1 diabetes mellitus without complications; Z79.02 Long term (current) use of antithrombotics/antiplatelets; Z79.84 Long term (current) use of oral hypoglycemic drugs; Z79.4 Long term (current) use of insulin; Z79.891 Long term (current) use of opiate analgesic; Z79.85 Long-term (current) use of injectable non-insulin antidiabetic drugs; Z79.899 Other long term (current) drug therapy
CPT/HCPCS: 0241U; 36000; 36415; 71045; 80053; 81001; 84484; 85025; 93005; 93041; 94760; 96360; 96361; 96374; 96375; 99284; J1885